=== PATIENT | female | born 1955 | race African-American/Black ===

== ENCOUNTER 2022-11-12 10:18 | Inpatient (IN) | payer BC ==
[2022-11-09 10:16] LABS: BASOPHILS % 0.8 % (0.0-1.0); EOSINOPHILS % 1.1 % (0.0-6.0); HEMATOCRIT 40.9 % (34.2-44.1); LYMPHOCYTES % 55.7 % (18.0-39.1); MEAN CORPUSCULAR HEMOGLOBIN 30.2 pg (28-32); MEAN CORPUSCULAR HGB CONC 31.8 g/dL (31-35); MEAN CORPUSCULAR VOLUME 94.9 fL (81-99); MONOCYTES # (AUTO) 0.3 (0.2-0.8); MONOCYTES % 8.9 % (4.4-11.3); NEUTROPHILS # (AUTO) 1.2 (2.1-6.9); NEUTROPHILS % 33.2 % (38.7-80.0); PLATELET COUNT 222 x10e3/uL (140-360); RED BLOOD COUNT 4.31 x10e6/uL (3.6-5.1); RED CELL DISTRIBUTION WIDTH 11.5 % (11.7-14.4)
[2022-11-09 10:30] LABS: ALBUMIN 4.2 g/dL (3.5-5.0); ALBUMIN/GLOBULIN RATIO 1.2 (0.8-2.0); CALCIUM 10.3 mg/dL (8.4-10.2); CREATININE, SERUM 0.77 mg/dL (0.57-1.11)
[~2022-11-12] VITALS: Ht 195.6 cm; Wt 79.8 kg
[~2022-11-12 10:18] MED LIST: ARMOUR THYROID60 MG PO; LOSARTAN POTASS25 MG PO; MULTI-VITAMIN1 EACH PO; VITAMIN D3 COM1 EACH PO
[2022-11-12] MEDS ORDERED: CEFAZOLIN SODIUM 2 GM ONE (11:16)
[2022-11-12] MEDS ORDERED: TRANEXAMIC ACID 10 ML ONE (12:25)
[2022-11-12] MEDS ORDERED: FAMOTIDINE 20 MG/2 ML VIAL IV ONE (12:25)
[2022-11-12] MEDS ORDERED: DEXMEDETOMIDINE HCL 2 ML ONE (12:25)
[2022-11-12] MEDS ORDERED: SUGAMMADEX SODIUM 200 MG/2 ML VIAL IV ONE (12:25)
[2022-11-12] MEDS ORDERED: ONDANSETRON HCL INJ 2MG/ML 2ML 2 MG/ML VIAL ONE (13:02)
[2022-11-12] MEDS ORDERED: POVIDONE IODINE 0.05% 0.05 % ML PO ONE (13:02)
[2022-11-12] MEDS ORDERED: ROCURONIUM BROMIDE 10 MG/ML 5ML VIAL IV ONE (13:02)
[2022-11-12] MEDS ORDERED: SEVOFLURANE INHAL SOLN 250 ML PEN BTL ONE (13:02)
[2022-11-12] MEDS ORDERED: DEXAMETHASONE SOD PHOS INJ 4 MG/ML SDV ONE (13:02)
[2022-11-12] MEDS ORDERED: LIDOCAINE HCL 2% LOCAL INJ 5 ML SDV VIAL INJ ONE (13:02)
[2022-11-12] MEDS ORDERED: GLYCOPYRROLATE INJ 0.2 MG/ML VIAL ONE (13:02)
[2022-11-12] MEDS ORDERED: PROPOFOL IV EMULSION 10 MG/ML 20 ML VIAL ONE (13:02)
[2022-11-12] MEDS ORDERED: EPHEDRINE SULFATE INJ 50 MG/ML VIAL ONE (13:02)
[2022-11-12] MEDS ORDERED: FENTANYL CITRATE/PF 100MCG/2 ML INJ ONE ×2 (13:13→15:33)
[2022-11-12] MEDS ORDERED: DIPHENHYDRAMINE HCL INJ 50 MG/ML VIAL IM PRN (15:00)
[2022-11-12] MEDS ORDERED: MORPHINE SULFATE 1 MG/ML 30ML PCA IV PRN (15:00)
[2022-11-12] MEDS ORDERED: ACETAMINOPHEN 1000 MG/100 ML IV PRN (15:00)
[2022-11-12] MEDS ORDERED: NALOXONE HCL INJ 0.4 MG/ML AMP IV PRN (15:00)
[2022-11-12] MEDS: ONDANSETRON HCL INJ 2MG/ML 2ML 2 MG/ML VIAL IV PRN (15:58)
[2022-11-12 16:00] VITALS: BP 152/77
[2022-11-12] MEDS ORDERED: HYDROMORPHONE 0.2MG/ML-SOD CHL 30ML PCA SYRINGE IV PRN (16:30)
[2022-11-12 16:48] VITALS: BP 153/74
[2022-11-12 17:45] LABS: BASOPHILS % 0.1 % (0.0-1.0); HEMATOCRIT 38.3 % (34.2-44.1); HEMOGLOBIN 12.2 g/dL (12.0-16.0); LYMPHOCYTES % 10.6 % (18.0-39.1); MEAN CORPUSCULAR HEMOGLOBIN 30.3 pg (28-32); MEAN CORPUSCULAR HGB CONC 31.9 g/dL (31-35); MEAN CORPUSCULAR VOLUME 95.3 fL (81-99); MONOCYTES # (AUTO) 0.3 (0.2-0.8); NEUTROPHILS # (AUTO) 8.4 (2.1-6.9); NEUTROPHILS % 85.6 % (38.7-80.0); PLATELET COUNT 178 x10e3/uL (140-360); RED BLOOD COUNT 4.02 x10e6/uL (3.6-5.1); RED CELL DISTRIBUTION WIDTH 11.7 % (11.7-14.4)
[2022-11-12 18:02] LABS: ANION GAP 12.6 mmol/L (8-16); CALCIUM 8.5 mg/dL (8.4-10.2); CREATININE, SERUM 0.8 mg/dL (0.57-1.11); POTASSIUM 3.6 mmol/L (3.5-5.1)
[2022-11-12] MEDS: D5.45%NS/KCL 20MEQ 1,000 ML IV SCH (18:06)
[2022-11-12] MEDS: SODIUM CHLORIDE 0.9% 250ML IRRIG IR SCH ×2 (18:06→22:00)
[2022-11-12 20:00] VITALS: BP 116/54
[2022-11-13] VITALS (9 sets, daily range): BP systolic 90–126; BP diastolic 43–53
[2022-11-13] MEDS: SODIUM CHLORIDE 0.9% 250ML IRRIG IR SCH ×3 (02:00→10:00)
[2022-11-13] MEDS: D5.45%NS/KCL 20MEQ 1,000 ML IV SCH ×3 (05:52→17:28)
[2022-11-13 06:07] LABS: BASOPHILS % 0.1 % (0.0-1.0); HEMATOCRIT 35.5 % (34.2-44.1); LYMPHOCYTES # (AUTO) 0.9 (1.0-3.2); LYMPHOCYTES % 10.6 % (18.0-39.1); MEAN CORPUSCULAR HEMOGLOBIN 29.8 pg (28-32); MEAN CORPUSCULAR VOLUME 96.2 fL (81-99); MONOCYTES # (AUTO) 0.6 (0.2-0.8); MONOCYTES % 7.4 % (4.4-11.3); NEUTROPHILS # (AUTO) 6.7 (2.1-6.9); NEUTROPHILS % 81.4 % (38.7-80.0); PLATELET COUNT 180 x10e3/uL (140-360); RED BLOOD COUNT 3.69 x10e6/uL (3.6-5.1); RED CELL DISTRIBUTION WIDTH 11.8 % (11.7-14.4)
[2022-11-13 06:38] LABS: ANION GAP 8.7 mmol/L (8-16); CALCIUM 8.3 mg/dL (8.4-10.2); CREATININE, SERUM 1.26 mg/dL (0.57-1.11); POTASSIUM 4.7 mmol/L (3.5-5.1)
[2022-11-13] MEDS ORDERED: HYDROMORPHONE 0.2MG/ML-SOD CHL 30ML PCA SYRINGE IV PRN (08:45)
[2022-11-14] MEDS: D5.45%NS/KCL 20MEQ 1,000 ML IV SCH ×3 (00:34→11:47)
[2022-11-14 05:00] VITALS: BP 107/53
[2022-11-14 06:04] LABS: BASOPHILS % 0.4 % (0.0-1.0); EOSINOPHILS % 0.1 % (0.0-6.0); HEMATOCRIT 31.7 % (34.2-44.1); HEMOGLOBIN 10.7 g/dL (12.0-16.0); LYMPHOCYTES % 13.1 % (18.0-39.1); MEAN CORPUSCULAR HEMOGLOBIN 32.4 pg (28-32); MEAN CORPUSCULAR HGB CONC 33.8 g/dL (31-35); MEAN CORPUSCULAR VOLUME 96.1 fL (81-99); MONOCYTES # (AUTO) 0.6 (0.2-0.8); NEUTROPHILS # (AUTO) 5.8 (2.1-6.9); PLATELET COUNT 156 x10e3/uL (140-360); RED CELL DISTRIBUTION WIDTH 12.1 % (11.7-14.4)
[2022-11-14 06:32] LABS: CALCIUM 8.4 mg/dL (8.4-10.2); CREATININE, SERUM 1.2 mg/dL (0.57-1.11)
[2022-11-14] MEDS: THYROID 60 MG TAB PO SCH ×3 (07:30→18:47)
[2022-11-14 08:02] VITALS: BP 121/56
[2022-11-14 09:03] VITALS: BP 121/56
[2022-11-14 11:27] VITALS: BP 120/55
[2022-11-14] MEDS ORDERED: TRAMADOL HCL 50 MG TAB PO PRN (14:00)
[2022-11-14] MEDS ORDERED: BISACODYL 10 MG SUPP PR ONE (14:00)
[2022-11-14 16:00] VITALS: BP 139/64
[2022-11-14] MEDS: DOCUSATE SODIUM 100 MG CAP PO SCH (17:23)
[2022-11-14] MEDS: ONDANSETRON HCL INJ 2MG/ML 2ML 2 MG/ML VIAL IV PRN (17:23)
[2022-11-14] MEDS: HYDROMORPHONE 1MG/1ML INJ IV PRN ×2 (17:24→21:55)
[2022-11-15] VITALS (8 sets, daily range): BP systolic 109–139; BP diastolic 53–72
[2022-11-15] MEDS: D5.45%NS/KCL 20MEQ 1,000 ML IV SCH ×2 (02:05→18:32)
[2022-11-15 06:10] LABS: BASOPHILS % 0.3 % (0.0-1.0); EOSINOPHILS % 0.6 % (0.0-6.0); HEMATOCRIT 33.6 % (34.2-44.1); HEMOGLOBIN 10.7 g/dL (12.0-16.0); LYMPHOCYTES # (AUTO) 0.9 (1.0-3.2); LYMPHOCYTES % 13.4 % (18.0-39.1); MEAN CORPUSCULAR HEMOGLOBIN 30.1 pg (28-32); MEAN CORPUSCULAR HGB CONC 31.8 g/dL (31-35); MEAN CORPUSCULAR VOLUME 94.4 fL (81-99); MONOCYTES # (AUTO) 0.7 (0.2-0.8); MONOCYTES % 9.8 % (4.4-11.3); NEUTROPHILS % 75.4 % (38.7-80.0); PLATELET COUNT 181 x10e3/uL (140-360); RED BLOOD COUNT 3.56 x10e6/uL (3.6-5.1); RED CELL DISTRIBUTION WIDTH 11.6 % (11.7-14.4)
[2022-11-15 06:34] LABS: ANION GAP 10.9 mmol/L (8-16); CALCIUM 8.5 mg/dL (8.4-10.2); CREATININE, SERUM 1.14 mg/dL (0.57-1.11); POTASSIUM 3.9 mmol/L (3.5-5.1)
[2022-11-15] MEDS: DOCUSATE SODIUM 100 MG CAP PO SCH ×2 (09:00→17:00)
[2022-11-15] MEDS: ONDANSETRON HCL INJ 2MG/ML 2ML 2 MG/ML VIAL IV PRN (09:25)
[2022-11-15] MEDS: HYDROMORPHONE 1MG/1ML INJ IV PRN ×2 (09:26→21:36)
[2022-11-15] MEDS: THYROID 60 MG TAB PO SCH (11:08)
[2022-11-16] VITALS (8 sets, daily range): BP systolic 100–126; BP diastolic 51–69
[2022-11-16] MEDS: HYDROMORPHONE 1MG/1ML INJ IV PRN ×5 (03:18→21:44)
[2022-11-16 05:02] LABS: BASOPHILS % 0.4 % (0.0-1.0); EOSINOPHILS # (AUTO) 0.2 (0.0-0.4); EOSINOPHILS % 3.6 % (0.0-6.0); HEMATOCRIT 31.6 % (34.2-44.1); HEMOGLOBIN 10.1 g/dL (12.0-16.0); LYMPHOCYTES # (AUTO) 1.2 (1.0-3.2); LYMPHOCYTES % 24.2 % (18.0-39.1); MEAN CORPUSCULAR HEMOGLOBIN 29.9 pg (28-32); MEAN CORPUSCULAR VOLUME 93.5 fL (81-99); MONOCYTES # (AUTO) 0.6 (0.2-0.8); MONOCYTES % 11.1 % (4.4-11.3); NEUTROPHILS % 60.5 % (38.7-80.0); PLATELET COUNT 178 x10e3/uL (140-360); RED BLOOD COUNT 3.38 x10e6/uL (3.6-5.1); RED CELL DISTRIBUTION WIDTH 11.6 % (11.7-14.4)
[2022-11-16 05:20] LABS: ANION GAP 9.9 mmol/L (8-16); CALCIUM 8.4 mg/dL (8.4-10.2); CREATININE, SERUM 1.13 mg/dL (0.57-1.11); POTASSIUM 3.9 mmol/L (3.5-5.1)
[2022-11-16] MEDS: THYROID 60 MG TAB PO SCH (05:38)
[2022-11-16] MEDS: DOCUSATE SODIUM 100 MG CAP PO SCH ×2 (09:23→17:34)
[2022-11-16] MEDS: D5.45%NS/KCL 20MEQ 1,000 ML IV SCH ×2 (09:24→21:47)
[2022-11-16] MEDS: ONDANSETRON HCL INJ 2MG/ML 2ML 2 MG/ML VIAL IV PRN ×3 (09:24→17:35)
[2022-11-16] MEDS ORDERED: LOSARTAN POTASSIUM 25 MG TAB PO SCH (21:00)
[2022-11-17 00:40] VITALS: BP 117/65
[2022-11-17 02:02] VITALS: BP 117/65
[2022-11-17] MEDS: HYDROMORPHONE 1MG/1ML INJ IV PRN (03:01)
[2022-11-17] MEDS: THYROID 60 MG TAB PO SCH (04:56)
[2022-11-17 05:43] VITALS: BP 102/58
[2022-11-17] MEDS ORDERED: ULTRAM 50MG50 MG PO (07:46)
[2022-11-17] MEDS ORDERED: KEFLEX125 MG/5 M PO (07:47)
[2022-11-17 09:13] VITALS: BP 102/58
== END 2022-11-17 08:41 | disposition home or self-care (01) | DRG 657 ==
LOC: OR 10:18 → PACU V 14:51 → MED/SURG2 15:49
PROVIDERS: ADMIT Family Medicine; ATTEND Family Medicine
PROC: 0TT10ZZ Resection of Left Kidney, Open Approach (ICD-10-PCS; principal; 2022-11-12 12:57)
DX: C64.2 Malignant neoplasm of left kidney, except renal pelvis (principal); N17.9 Acute kidney failure, unspecified; I10 Essential (primary) hypertension; E78.5 Hyperlipidemia, unspecified; E03.9 Hypothyroidism, unspecified; Z20.822 Contact with and (suspected) exposure to COVID-19
CPT/HCPCS: 0223U; 36415; 71045; 71046; 80048; 80053; 83735; 85025; 86850; 86900; 86920; 88304; 88307; 88311; 88342; 93005; 94799; 96361; 99252; J0690; J1100; J1170; J2001; J2270; J2405; J3010

== ENCOUNTER 2025-03-04 09:00 | Outpatient (RCR) | payer BC ==
[~2025-03-04 09:00] MED LIST changes: +KEFLEX125 MG/5 M PO; +ULTRAM 50MG50 MG PO
== END 2025-03-15 ==
LOC: PT 09:00
PROVIDERS: ATTEND Specialist
DX: M71.552 Other bursitis, not elsewhere classified, left hip (principal)